=== PATIENT | male | born 1995 | race Caucasian/White ===

== ENCOUNTER 2016-11-04 14:47 | Emergency (ER) | payer OTHER ==
--- NOTE | 2016-11-11 08:15 | ER ---
ADMIT: 11/04/2016 RM/LOC: ER [facility] MR#: [id number] [address] [id number] JODY YARBROUGH [address] [place] [address] Emergency Room Report SEX: M AGE: 21 : 1995 DATE: 11/04/2016 HISTORY OF PRESENT ILLNESS: A 21-year-old who was playing basketball when he struck in the face, bit his tongue. See T-sheet for remainder of history and physical. He had a 1 cm linear laceration to the tongue approximately mid portion of his tongue requiring no closure. DIAGNOSIS: Tongue laceration. Discharged with [facility]. Instructed to follow up as needed. Brian Jarrell MD/ nelda JOB #: [id number] CC: Brian Jarrell MD, Attending Physician UNKNOWN, Family Physician
== END 2016-11-04 15:45 | disposition home or self-care (01) ==
LOC: ER 14:47
DX: S01.512A Laceration without foreign body of oral cavity, initial encounter (principal); W21.05XA Struck by basketball, initial encounter; Y93.67 Activity, basketball